=== PATIENT | female | born 1965 | race Caucasian/White ===

== ENCOUNTER 2018-09-29 07:30 | Inpatient (IN) | payer MEDICAID ==
[~2018-09-29] VITALS: Ht 154.9 cm; Wt 59.0 kg
[2018-10-13] MEDS ORDERED: CYCL-259 PO (11:50)
[2018-10-13] MEDS ORDERED: NAPR220C2 PO (11:50)
[2018-10-13] MEDS ORDERED: IBUP200T49 PO (11:50)
[2018-10-13] MEDS ORDERED: MELO7.5T31 PO (11:50)
[2018-10-13] MEDS ORDERED: PREG50CA PO (11:50)
[2018-10-27] MEDS ORDERED: THROMBIN 20,000 UNIT VIAL TP ONE (06:17)
[2018-10-27] MEDS ORDERED: BUPIVACAINE/PF 0.25% ONE (06:17)
[2018-10-27] MEDS ORDERED: THROMBIN 5,000 UNIT VIAL TP ONE ×2 (06:17→06:49)
[2018-10-27] MEDS ORDERED: BUPIVACAINE/PF-EPI 0.5% 1:200K ONE (06:17)
[2018-10-27] MEDS ORDERED: VANCOMYCIN 1,000 MG ONE (06:17)
[2018-10-27] MEDS ORDERED: LACTATED RINGERS 1,000 ML IV SCH (06:47)
[2018-10-27] MEDS ORDERED: GENTAMICIN 80 MG/2 ML ONE (06:48)
[2018-10-27] MEDS ORDERED: morphine SULFATE/PF 0.5 MG/ML, 10ML ONE (06:49)
[2018-10-27] MEDS ORDERED: BACITRACIN 50,000 UNIT ONE (06:49)
[2018-10-27] MEDS ORDERED: FENTANYL PF 100 MCG/2ML ONE (06:49)
[2018-10-27] MEDS ORDERED: LIDOCAINE 1%-EPI 1:100K, 20ML ONE (06:49)
[2018-10-27] MEDS ORDERED: EPINEPHRINE 1 MG/ML, 1ML ONE (06:49)
[2018-10-27] MEDS ORDERED: HEPARIN 1,000 UNITS/ML, 30ML ONE (06:58)
[2018-10-27] MEDS ORDERED: SUCCINYLCHOLINE 20 MG/ML, 10ML ONE (07:08)
[2018-10-27] MEDS ORDERED: PROPOFOL 10 MG/ML, 20ML ONE (07:08)
[2018-10-27] MEDS ORDERED: FENTANYL PF 250 MCG/5ML ONE (07:08)
[2018-10-27] MEDS ORDERED: PROPOFOL 50 ML ONE ×4 (07:08→11:06)
[2018-10-27] MEDS ORDERED: MIDAZOLAM 1 MG/ML, 2ML ONE (07:08)
[2018-10-27] MEDS ORDERED: CEFAZOLIN 1,000 MG ONE ×2 (07:08→07:09)
[2018-10-27] MEDS ORDERED: ROCURONIUM 10MG/ML,5ML ONE (07:08)
[2018-10-27] MEDS ORDERED: LIDOCAINE-MPF 2% ,5ML ONE (07:08)
[2018-10-27] MEDS ORDERED: PHENYLEPHRINE 10 MG/ML ONE (07:09)
[2018-10-27] MEDS ORDERED: DEXAMETHASONE 4 MG/ML, 1ML ONE ×2 (07:09)
[2018-10-27 07:14] VITALS: BP 123/75
[2018-10-27] MEDS ORDERED: SCOPOLAMINE PATCH, 1.5MG PATCH.TD72 TD ONE (07:30)
[2018-10-27] MEDS ORDERED: GABAPENTIN 300 MG CAPSULE PO ONE (07:30)
[2018-10-27] MEDS ORDERED: ACETAMINOPHEN 500 MG TABLET PO ONE (07:30)
[2018-10-27] MEDS ORDERED: ONDANSETRON 2MG/ML, 2ML ONE ×2 (07:46→12:57)
[2018-10-27] MEDS ORDERED: FENTANYL PF 100 MCG/2ML IV PRN (08:00)
[2018-10-27] MEDS ORDERED: hydrALAzine 20 MG/ML, 1ML IV PRN (08:00)
[2018-10-27] MEDS ORDERED: ONDANSETRON 2MG/ML, 2ML IV PRN ×2 (08:00→15:00)
[2018-10-27] MEDS ORDERED: LORazepam 2 MG/ML, 1ML IVPush PRN (08:00)
[2018-10-27] MEDS ORDERED: METOCLOPRAMIDE 5 MG/ML, 2ML IV PRN (08:00)
[2018-10-27] MEDS ORDERED: HYDROmorphone 2 MG/ML, 1ML IVPush PRN (08:00)
[2018-10-27] MEDS ORDERED: OXYcodone 5 MG/5 ML ORAL.SOL UDC PO PRN (08:00)
[2018-10-27] MEDS ORDERED: MEPERIDINE/PF 25MG/0.5ML IVPush PRN (08:00)
[2018-10-27] MEDS ORDERED: ALBUTEROL SULFATE 2.5 MG/3 ML NPPB PRN (08:00)
[2018-10-27] MEDS ORDERED: LABETALOL 5MG/ML, 20ML IV PRN ×2 (08:00→15:00)
[2018-10-27] MEDS ORDERED: LACTATED RINGERS 500 ML IVBOLUS PRN (13:30)
[2018-10-27] MEDS ORDERED: HYDROcodone/APAP 5/325 TABLET PO PRN (15:00)
[2018-10-27] MEDS ORDERED: DIAZEPAM 5 MG/ML, 2ML IV PRN (15:00)
[2018-10-27] MEDS ORDERED: DIAZEPAM 5 MG TABLET PO PRN (15:00)
[2018-10-27] MEDS ORDERED: OXYcodone/APAP 5/325MG TABLET PO PRN (15:00)
[2018-10-27] MEDS ORDERED: D5%-0.9% NACL+KCL 20MEQ 1,000 ML IV SCH (15:00)
[2018-10-27] MEDS: CEFAZOLIN PMX 1GM/50ML 50 ML IVPB SCH (16:27)
[2018-10-27] MEDS: NICOTINE 21 MG/24 HR PATCH.TD24 TD SCH ×2 (16:27→16:30)
[2018-10-27] MEDS: PREGABALIN 150 MG CAPSULE PO SCH (20:28)
[2018-10-27 20:35] VITALS: BP 89/52
[2018-10-28] MEDS: CEFAZOLIN PMX 1GM/50ML 50 ML IVPB SCH ×4 (00:21→23:56)
[2018-10-28] MEDS: D5%-0.9% NACL+KCL 20MEQ 1,000 ML IV SCH ×2 (00:21→08:38)
[2018-10-28 00:28] VITALS: BP 91/55
[2018-10-28 04:15] VITALS: BP 93/42
[2018-10-28 06:55] VITALS: BP 89/54
[2018-10-28] MEDS: NICOTINE 21 MG/24 HR PATCH.TD24 TD SCH (07:35)
[2018-10-28] MEDS: SENNA/DOCUSATE TABLET PO SCH (08:39)
[2018-10-28 08:49] VITALS: BP 96/52
[2018-10-28] MEDS: PREGABALIN 150 MG CAPSULE PO SCH ×2 (08:55→21:21)
[2018-10-28] MEDS ORDERED: D5%-0.9% NACL+KCL 20MEQ 1,000 ML IV SCH ×2 (09:30→15:00)
[2018-10-28 13:28] VITALS: BP 88/50
[2018-10-28 20:40] VITALS: BP 88/43
[2018-10-29 00:29] VITALS: BP 85/38
[2018-10-29 07:21] VITALS: BP 110/58
[2018-10-29] MEDS: CEFAZOLIN PMX 1GM/50ML 50 ML IVPB SCH ×2 (07:50→15:07)
[2018-10-29] MEDS: SENNA/DOCUSATE TABLET PO SCH (07:50)
[2018-10-29] MEDS: PREGABALIN 150 MG CAPSULE PO SCH (07:50)
[2018-10-29] MEDS: NICOTINE 21 MG/24 HR PATCH.TD24 TD SCH (15:00)
[2018-10-29 15:33] VITALS: BP 110/70
[2018-10-29] MEDS ORDERED: NICO-487 TD (16:27)
[2018-10-29] MEDS ORDERED: NICO-486 TD (16:27)
[2018-10-29 17:02] VITALS: BP 104/65
== END 2018-10-29 17:30 | disposition home or self-care (01) | DRG 304 ==
LOC: ORIP 10-27 06:02 → 4NOR 10-27 14:16
PROVIDERS: ADMIT Orthopaedic Surgery Orthopaedic Surgery of the Spine; ATTEND Orthopaedic Surgery Orthopaedic Surgery of the Spine
PROC: 0SB20ZZ Excision of Lumbar Vertebral Disc, Open Approach (ICD-10-PCS; 2018-10-27)
PROC: 4A11X4G Monitoring of Peripheral Nervous Electrical Activity, Intraoperative, External Approach (ICD-10-PCS; 2018-10-27)
PROC: 0QB20ZZ Excision of Right Pelvic Bone, Open Approach (ICD-10-PCS; 2018-10-27)
PROC: 0SG0071 Fusion of Lumbar Vertebral Joint with Autologous Tissue Substitute, Posterior Approach, Posterior Column, Open Approach (ICD-10-PCS; 2018-10-27)
PROC: 01NB0ZZ Release Lumbar Nerve, Open Approach (ICD-10-PCS; 2018-10-27)
PROC: 0SG00AJ Fusion of Lumbar Vertebral Joint with Interbody Fusion Device, Posterior Approach, Anterior Column, Open Approach (ICD-10-PCS; principal; 2018-10-27 07:30)
DX: M48.061 Spinal stenosis, lumbar region without neurogenic claudication (principal); M41.9 Scoliosis, unspecified; J45.909 Unspecified asthma, uncomplicated; G89.29 Other chronic pain; M43.16 Spondylolisthesis, lumbar region; M48.07 Spinal stenosis, lumbosacral region; M54.16 Radiculopathy, lumbar region
CPT/HCPCS: 36415; 72100; 86850; 86900; 86923; C1713; G0378; J0171; J0690; J1100; J1644; J2250; J2270; J2274; J2405; J2704; J3010; J3370; J3490; J7120; C1751; C1762; J0330; J1580; J2370; J3480

== ENCOUNTER 2018-10-13 09:42 | Outpatient (CLI) | payer MEDICAID ==
[2018-10-13 11:10] LABS: MICROSCOPIC NOT IND
[2018-10-13 11:14] LABS: CULTURE INDICATED? NO
[2018-10-13 11:15] LABS: BASOPHILS # (AUTO) 0.02 x10^3/uL (0-0.1); BASOPHILS % (AUTO) 0 % (0-1); EOSINOPHILS # (AUTO) 0.05 x10^3/uL (0-0.4); EOSINOPHILS % (AUTO) 1 % (1-7); LYMPHOCYTES # (AUTO) 1.38 x10^3/uL (1-3.4); LYMPHOCYTES % (AUTO) 23 % (22-44); MD NO; MEAN CORPUSCULAR HEMOGLOBIN 29.3 pg (27.0-34.8); MEAN CORPUSCULAR HGB CONC 32.7 g/dL (32.4-35.8); MEAN CORPUSCULAR VOLUME 89.5 fL (80-100); MEAN PLATELET VOLUME 7.7 fL (7.4-10.4); MONOCYTES # (AUTO) 0.38 x10^3/uL (0.2-0.8); MONOCYTES % (AUTO) 6 % (2-9); NEUTROPHILS % (AUTO) 70 % (42-75); PLATELET COUNT 299 x10^3/uL (130-400); RED BLOOD COUNT 4.51 x10^6/uL (3.82-5.3); RED CELL DISTRIBUTION WIDTH 14.7 % (9.6-15.2)
[2018-10-13 11:19] LABS: INTERNATIONAL NORMALIZED RATIO 0.95 (0.93-1.1)
[2018-10-13 11:20] LABS: ANION GAP 6 mmol/L (5-15); CALCIUM 9.2 mg/dL (8.5-10.1); CHLORIDE 111 mmol/L (98-107)
[2018-10-13 11:35] LABS: ALANINE AMINOTRANSFERASE 21 U/L (12-78); ALKALINE PHOSPHATASE 83 U/L (45-117); BILIRUBIN,TOTAL 0.3 mg/dL (0.2-1.0); CREATININE 0.94 mg/dL (0.55-1.02); TOTAL PROTEIN 7.2 g/dL (6.4-8.2)
[2018-10-13] MEDS ORDERED: CYCL-259 PO (11:50)
[2018-10-13] MEDS ORDERED: NAPR220C2 PO (11:50)
[2018-10-13] MEDS ORDERED: IBUP200T49 PO (11:50)
[2018-10-13] MEDS ORDERED: PREG50CA PO (11:50)
[2018-10-13] MEDS ORDERED: MELO7.5T31 PO (11:50)
[2018-10-13 12:11] LABS: HCT (SEDRATE) 40.3 % (34.6-47.8)
== END 2018-10-13 23:59 | disposition home or self-care (01) ==
LOC: STAR 09:42
PROVIDERS: ATTEND Orthopaedic Surgery Orthopaedic Surgery of the Spine
DX: Z01.818 Encounter for other preprocedural examination (principal); M43.17 Spondylolisthesis, lumbosacral region; M48.07 Spinal stenosis, lumbosacral region; M47.27 Other spondylosis with radiculopathy, lumbosacral region
CPT/HCPCS: 36415; 71046; 80053; 80074; 81003; 85025; 85610; 85651; 85730; 87806; 93005; G0475